=== PATIENT | male | born 1965 | race Caucasian/White ===

== ENCOUNTER 2018-10-20 08:38 | Emergency (ER) | payer MEDICAID ==
[~2018-10-20] VITALS: Ht 170.2 cm; Wt 81.6 kg
[2018-10-20 08:46] VITALS: BP 154/88; Ht 170.2 cm; Wt 81.6 kg
== END 2018-10-20 09:03 | disposition left against medical advice (07) ==
LOC: ED 08:38
DX: Z53.21 Procedure and treatment not carried out due to patient leaving prior to being seen by health care provider (principal)

== ENCOUNTER 2018-10-20 10:22 | Emergency (ER) | payer MEDICAID ==
[~2018-10-20] VITALS: Ht 170.2 cm; Wt 81.6 kg
[2018-10-20 10:22] VITALS: BP 150/76; Ht 170.2 cm; Wt 81.6 kg
== END 2018-10-20 11:56 | disposition home or self-care (01) ==
LOC: ED 10:22
DX: S01.01XA Laceration without foreign body of scalp, initial encounter (principal); S00.431A Contusion of right ear, initial encounter; S60.221A Contusion of right hand, initial encounter; S09.8XXA Other specified injuries of head, initial encounter; I10 Essential (primary) hypertension; Y08.89XA Assault by other specified means, initial encounter; Y93.89 Activity, other specified; Y92.89 Other specified places as the place of occurrence of the external cause; Y99.8 Other external cause status